=== PATIENT | male | born 1980 | race Caucasian/White ===

== ENCOUNTER 2016-11-01 06:54 | Emergency (ER) | payer MEDICAID ==
[2016-11-01 08:08] VITALS: BP 123/78
--- NOTE | 2016-11-03 00:14 | ER ---
DATE SEEN: 11/01/2016 The patient was seen at 0735 hours. /[id number] ENRIQUE/KEMAR
--- NOTE | 2016-11-03 01:14 | ER ---
DATE SEEN: 11/01/2016 HISTORY OF PRESENT ILLNESS: This 35-year-old single smoker who has a significant history of approximately "every four years suicidal attempts - approximately 8 to 9 times since he has been 2 years of age" presents with one- week duration of increasing ear pain. He is allergic to Amoxil and penicillin, which cause anaphylactic shock, and also very allergic to erythromycin. There is a family history of all his grandparents and parents, siblings, having serious allergic reactions to penicillin. A year ago, he tried to hang himself. He has had previous surgery, right rotator cuff repair, and appendectomy. He has done well after the rotator cuff repair. 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 He lives in [place], [place]. His weight is 295 pounds. He has a former addiction. Does not want any pain medicine, unless he needs them. If he is prescribed pain medicine, he will take only 4 tablets. He has had PTSD, significant mood swings, ADHD, significant anxiety. History of alcohol use. REVIEW OF SYSTEMS: Decreased hearing. No sore throat. No sinus congestion. His seasonal allergies are quite extensive, especially this time of the year when the grain does ooze. CARDIORESPIRATORY: Negative. Denies shortness of breath, chest pain. Regular rate and rhythm. Denies abdominal pain, change in bowels, diarrhea, constipation, blood in stool, black tarry stools. MUSCULOSKELETAL: Denies arthritis. PHYSICAL EXAMINATION: VITAL SIGNS: Blood pressure 139/88, heart rate 87, respirations 17, oxygen saturation 98%, and temperature is 36.8 degrees centigrade. GENERAL: Alert man, in mild distress. He has difficulty getting up. He preferred not standing up to be examined. He is tall, overweight and has pear-shaped body habitus. PERRLA intact. Bilateral beefy red TMs, which are swollen. No TM fluid level is demonstrated. Canals are normal. There is marked turbinate swelling. Bilateral pharynx without abnormality. Mild shiners. LUNGS: Clear to auscultation without rales, rhonchi, or wheezes. HEART: S1, S2. No murmur. ABDOMEN: Soft. No guarding. No abdominal discomfort. EXTREMITIES: Without abnormality. NEURO: Not performed. ASSESSMENT AND PLAN: 1. Bilateral otitis media, treated with clindamycin 300 mg q.i.d., 40 tablets. 2. Four tablets of Vicodin for severe pain, and discussed with him using medication for allergic rhinitis. This will probably open eustachian tubes. Trial prednisone. 3. Obesity. 4. Suicidal ideation. He has had suicidal attempts about 8 or 9 times. He has been 3 years without this. He states every 4 years on the clock, he has tried to commit suicide. Stable presently. 5. Status post right rotator cuff surgery, and appendectomy. 6. Depression, bipolar, anxiety, and sees a counselor on a regular basis. Plan Clindamycin 300 mg qid and prednisone, 4 tab vicodin. /[id number] ENRIQUE/KEMAR LEONARD
--- NOTE | 2016-11-03 02:47 | ER ---
DATE SEEN: 11/01/2016 TIME SEEN: The patient was seen at 0730 hours. HISTORY OF PRESENT ILLNESS: The patient has left ear pain 2 days duration. He notes he has had significant allergies. It gets worse with harvest season. 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 He is allergic to penicillin. He has had anaphylactic shock with penicillin as well as all of his relatives mother, father, grandmother, grandparents, grandfather all had " like allergic anaphylactic reaction to penicillin." He is also allergic to erythromycin base. He has multiple other issues. OTHER PAST MEDICAL HISTORY: Significant for right rotator cuff surgery. One year ago, he hung himself. Every 4 years, he states he has attempted suicide. His weight is 295 pounds. He currently works at home and caring for his friends' children. He has bipolar, sees a counselor on a weekly basis. He has had chemical dependency in the past. Does not want any pain killers, if anything would be 4 tablets. REVIEW OF SYSTEMS: HEENT: Negative except the ear pain. Denies sinusitis or sore throat, but he has extensive nasal congestion and has extensive nasal allergies secondary to the seasonal pollen of corn, soybean, wheat harvesting. LUNGS: Denies cardiorespiratory complaints. GI: Denies GI complaints. He is markedly overweight at 295 pounds with the BMI of 36.2 kilos/sq m. : Negative. MUSCULOSKELETAL: Negative except for mild arthritis in the upper and lower extremities because of his weight. PSYCHIATRIC: Bipolar disease with significant depression, intermittent, every 4 years suicidal activity. He is now into 3 years without suicidal ideation or activity. The patient said every day he thinks about suicide. PHYSICAL EXAMINATION: VITAL SIGNS: Blood pressure 139/89, heart rate 87, respirations 17, oxygen saturation 97%, temperature 36.8 degrees centigrade. HEENT: PERRLA intact. The patient is mildly overweight. Smells of cigarettes. Bilateral red TMs with bulging. No canal pain. With traction. Mild cervical adenopathy. Pharynx without erythema. NECK: Supple. LUNGS: Clear to auscultation. HEART: S1, S2. No murmur. ABDOMEN: Soft. No guarding. No abdominal discomfort. No masses or megaly. EXTREMITIES: Without edema. NEURO: Not performed. ASSESSMENT: 1. Bilateral otitis media. 2. History of anaphylaxis to penicillin of the patient and entire family members. 3. Premorbid obesity. 4. Cigarette use. 5. Bipolar with weekly counseling. 6. Chemical dependency history in the past. PLAN: Treat with clindamycin 300 mg q.i.d., 40 tablets. Prednisone 10 mg b.i.d. for 3 days then 10 mg daily for 6 days. Four tablets of Vicodin 1 q.4 hours p.r.n. breakthrough pain if not resolved with 1000 mg of Tylenol and 600 mg of ibuprofen. He is very afraid to use any form of pain medicines. He would not like to resume that chemical dependency activity. /[id number] ENRIQUE/KEMAR
== END 2016-11-01 08:00 | disposition home or self-care (01) ==
LOC: FB.ED 06:54
DX: H66.93 Otitis media, unspecified, bilateral (principal); F31.9 Bipolar disorder, unspecified; F41.9 Anxiety disorder, unspecified; F17.210 Nicotine dependence, cigarettes, uncomplicated; E66.01 Morbid (severe) obesity due to excess calories; Z88.0 Allergy status to penicillin; Z88.1 Allergy status to other antibiotic agents; Z98.890 Other specified postprocedural states; Z68.36 Body mass index [BMI] 36.0-36.9, adult
CPT/HCPCS: 99283

== ENCOUNTER 2017-06-01 20:07 | Emergency (ER) | payer MEDICAID ==
--- NOTE | 2017-06-01 20:14 | EDM.PDOC ---
ED HPI GENERAL MEDICAL PROBLEM - General Stated Complaint: FALL Time Seen by Provider: 06/01/17 20:07 Source of Information: Reports: Patient, Family History Limitations: Reports: No Limitations - History of Present Illness INITIAL COMMENTS - FREE TEXT/NARRATIVE: 36 y.o.w.m -former Drug addict- came to the ed shortly after he fell at home and injured his left ankle and foot. Pt noticed a small abrasion an his left big toe as well. Pt denies any other acute injuries. No LOC, No N/V/D or dizziness. Exact mech of injury is not known. BP 149/89 Pulse 89 RR 18 Pulse ox 98% on RA Temp 36.8 Onset Date: 06/01/17 Onset Time: 14:00 Duration: Hour(s):, Getting Worse, Intermittent Location: Reports: Lower Extremity, Left Quality: Reports: Ache, Burning, Dull Severity: Moderate Improves with: Reports: Rest Worsens with: Reports: Movement Context: Reports: Trauma (fall) Associated Symptoms: Reports: Other (abrsasion left big toe) Treatments BACTERIOLOGY RESEARCH ASSISTANT: Reports: NSAIDS L ankle & foot Pain Score (Numeric/FACES): 5 - Related Data Allergies Allergy/AdvReac Type Severity Reaction Status Date / Time Penicillins Allergy Severe Anaphylactic Verified 06/01/17 20:15 Shock adhesive Allergy Hives Verified 06/01/17 20:15 erythromycin base Allergy Hives Verified 06/01/17 20:15 [Erythromycin Base] varenicline tartrate Allergy Other Verified 06/01/17 20:15 [From Chantix] Home Meds: Home Meds OXcarbazepine [Trileptal] 1,200 mg PO DAILY 06/01/17 [History] OXcarbazepine [Trileptal] 600 mg PO BEDTIME 06/01/17 [History] cloNIDine [Catapres] 0.2 mg PO BID 06/01/17 [History] Past Medical History - Past Health History Medical/Surgical History: Denies Medical/Surgical History HEENT History: Reports: Impaired Vision Respiratory History: Reports: Asthma Psychiatric History: Reports: Anxiety, Depression, Panic Attack - Past Surgical History GI Surgical History: Reports: Appendectomy Other Musculoskeletal Surgeries/Procedures:: shoulder surgery Social & Family History - Family History Family Medical History: Unobtainable - Tobacco Use Smoking Status *Q: Current Every Day Smoker Years of Tobacco use: 25 Packs/Tins Daily: 1 - Caffeine Use Caffeine Use: Reports: Coffee, Soda, Tea - Alcohol Use Days Per Week of Alcohol Use: 0 Number of Drinks Per Day: 1 Total Drinks Per Week: 0 - Recreational Drug Use Recreational Drug Use: No Drug Use in Last 12 Months: No Recreational Drug Type: Reports: Amphetamines (Speed), Cocaine, Heroin, LSD ( Acid), Marijuana/Hashish, Methamphetamine Review of Systems - Review of Systems Review Of Systems: See Below Constitutional: Reports: No Symptoms Eyes: Reports: No Symptoms Ears: Reports: No Symptoms Nose: Reports: No Symptoms Mouth/Throat: Reports: No Symptoms Respiratory: Reports: No Symptoms Cardiovascular: Reports: No Symptoms GI/Abdominal: Reports: No Symptoms Genitourinary: Reports: No Symptoms Musculoskeletal: Reports: Foot Pain, Other (left ankle pain) Skin: Reports: Wound (left big toe, med aspect) Neurological: Reports: No Symptoms Psychiatric: Reports: No Symptoms ED EXAM, GENERAL - Physical Exam Exam: See Below Exam Limited By: No Limitations General Appearance: Alert, WD/WN, Mild Distress Eye Exam: Bilateral Eye: Normal Inspection Ears: Normal External Exam Ear Exam: Bilateral Ear: Auricle Normal Nose: Normal Inspection, Normal Mucosa, No Blood Throat/Mouth: Normal Inspection, Normal Lips Head: Atraumatic, Normocephalic Neck: Normal Inspection, Supple, Non-Tender, Full Range of Motion Respiratory/Chest: No Respiratory Distress, Lungs Clear, Normal Breath Sounds Cardiovascular: Normal Peripheral Pulses, Regular Rate, Rhythm, No Edema, No Gallop, JVD Peripheral Pulses: 1+: Femoral (L) GI/Abdominal: Normal Bowel Sounds, Soft, Non-Tender (Male) Exam: Deferred Rectal (Males) Exam: Deferred Back Exam: Normal Inspection, Full Range of Motion Extremities: Normal Inspection, Limited Range of Motion (left ankle) Neurological: Alert, Oriented, CN II-XII Intact, Normal Cognition, Abnormal Gait (left ankle pain) Psychiatric: Normal Affect, Normal Mood Skin Exam: Warm, Dry, Intact, Normal Color, Wound/Incision (abrasion left big toe) Lymphatic: No Adenopathy Course - Vital Signs Text/Narrative:: 36 y.o.w.m -former Drug addict- came to the ed shortly after he fell at home and injured his left ankle and foot. Pt noticed a small abrasion an his left big toe as well. Pt denies any other acute injuries. No LOC, No N/V/D or dizziness. Exact mech of injury is not known. BP 149/89 Pulse 89 RR 18 Pulse ox 98% on RA Temp 36.8 PE: Morbid obese 36 years old w m, currently unemployed, lives with a friend Imaging: Left selma, left food: No acute fracture TD UTD. Last TD 7 years ago. Impression: Left ankle sprain, abrasion left big toe, med aspect Tx: James wrap, crutches. Neosporins to wound (pt will use own Neosporine at home) Reexam: Improved, pt can ambulate with crutches well Plan: D/C with instructions Last Recorded V/S: Last Vital Signs Temp 36.6 C 06/01/17 20:10 Pulse 81 06/01/17 20:10 Resp 18 06/01/17 20:10 BP 149/89 H 06/01/17 20:10 Pulse Ox 99 06/01/17 20:10 - Orders/Labs/Meds Orders: Active Orders 24 hr Category Date Time Status Ankle Min 3V Lt [CR] Stat Exams 06/01/17 20:12 Taken Foot Comp Min 3V Lt [CR] Stat Exams 06/01/17 20:12 Taken Departure - Departure Time of Disposition: 21:42 Disposition: Home, Self-Care 01 Condition: Good Clinical Impression: Abrasion Left ankle sprain Qualifiers: Encounter type: initial encounter - Discharge Information Instructions: Ankle Sprain, [id number] Referrals: PCP,None [Primary Care Provider] - Forms: ED Department Discharge Additional Instructions: ice, rest and elevation, weight bearing as tolerated, Neosporine ointment to left toe lesion, please follow up next week for recheck, come back if your symptoms get worse acutely. Use crutches until able to walk with full weight bearing as tolerated. James wrap to L ankle. - My Orders Last 24 Hours: My Active Orders 06/01/17 20:12 Ankle Min 3V Lt [CR] Stat Foot Comp Min 3V Lt [CR] Stat - Assessment/Plan Last 24 Hours: My Active Orders 06/01/17 20:12 Ankle Min 3V Lt [CR] Stat Foot Comp Min 3V Lt [CR] Stat
[2017-06-01 23:00] VITALS: BP 135/73
== END 2017-06-01 22:17 | disposition home or self-care (01) ==
LOC: FB.ED 20:07
DX: S93.402A Sprain of unspecified ligament of left ankle, initial encounter (principal); S90.412A Abrasion, left great toe, initial encounter; F17.210 Nicotine dependence, cigarettes, uncomplicated; Z88.0 Allergy status to penicillin; Z88.1 Allergy status to other antibiotic agents; Z88.8 Allergy status to other drugs, medicaments and biological substances; Z79.899 Other long term (current) drug therapy; W19.XXXA Unspecified fall, initial encounter; Y92.009 Unspecified place in unspecified non-institutional (private) residence as the place of occurrence of the external cause
CPT/HCPCS: 73610-LT; 73630-LT; 99283

== ENCOUNTER 2017-08-20 17:22 | Emergency (ER) | payer MEDICAID ==
--- NOTE | 2017-08-20 17:40 | EDM.PDOC ---
ED HPI GENERAL MEDICAL PROBLEM - General Chief Complaint: Behavioral/Psych Stated Complaint: PASSING OUT,HURT LEFT WRIST Time Seen by Provider: 08/20/17 17:25 Source of Information: Reports: Patient, Family - History of Present Illness INITIAL COMMENTS - FREE TEXT/NARRATIVE: c/o L wrist pain scratched on dorsum L hand this AM by his cat, has pain in his wrist now, does not remember injury went to walk-in clinic, he "passed out" on exam table which he has done many times in past, has seen neuro, sig other notes that there is no change from previous and that he does this when he is upset has started a new job, 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 for his new job enrollment left wrist Pain Score (Numeric/FACES): 7 - Related Data Allergies Allergy/AdvReac Type Severity Reaction Status Date / Time Penicillins Allergy Severe Anaphylactic Verified 08/20/17 17:54 Shock adhesive Allergy Hives Verified 08/20/17 17:54 erythromycin base Allergy Hives Verified 08/20/17 17:54 [Erythromycin Base] varenicline tartrate Allergy Other Verified 08/20/17 17:54 [From Chantix] Home Meds: Home Meds Sulfamethoxazole/Trimethoprim [Bactrim Ds Tablet] 1 each PO BID #14 tablet 08/20 [Rx] Past Medical History - Past Health History Medical/Surgical History: Denies Medical/Surgical History HEENT History: Reports: Impaired Vision Cardiovascular History: Reports: Syncope Other Cardiovascular History: states has problems with dizziness & passes out freq. for approx 1 min. Respiratory History: Reports: Asthma Other Respiratory History: athletic asthma Gastrointestinal History: Reports: GERD Musculoskeletal History: Reports: Arthritis, Back Pain, Chronic, Fracture, Neck Pain, Chronic Neurological History: Reports: Concussion, Migraines, Vertigo, Other (See Below) Other Neuro History: heat stroke, has freq dizziness, Psychiatric History: Reports: Anxiety, Depression, Panic Attack Other Psychiatric History: borderline personality, social anxiety, anger management, psych hospitalizations x 3, CD tx currently, hx ETOH & drug abuse. Endocrine/Metabolic History: Reports: Obesity/BMI 30+ - Infectious Disease History Infectious Disease History: Reports: Chicken Pox - Past Surgical History GI Surgical History: Reports: Appendectomy Other Musculoskeletal Surgeries/Procedures:: shoulder surgery Social & Family History - Family History Family Medical History: Unobtainable - Caffeine Use Caffeine Use: Reports: Coffee, Soda, Tea Review of Systems - Review of Systems Review Of Systems: See Below Constitutional: Reports: No Symptoms Eyes: Reports: No Symptoms Ears: Reports: No Symptoms Nose: Reports: No Symptoms Mouth/Throat: Reports: No Symptoms Respiratory: Reports: No Symptoms Cardiovascular: Reports: No Symptoms GI/Abdominal: Reports: No Symptoms Genitourinary: Reports: No Symptoms Musculoskeletal: Reports: Other (left wrist pain) Skin: Reports: No Symptoms Neurological: Reports: No Symptoms Psychiatric: Reports: No Symptoms ED EXAM, GENERAL - Physical Exam Exam: See Below Exam Limited By: No Limitations General Appearance: Alert, WD/WN Neck: Normal Inspection, Supple, Non-Tender, Full Range of Motion Respiratory/Chest: No Respiratory Distress Cardiovascular: Regular Rate, Rhythm GI/Abdominal: Soft, Non-Tender Back Exam: Normal Inspection, Full Range of Motion, NT Extremities: Other (L wrist and hand with slight swell, mild tender across dorsum carpal bones, not localizing, no erythmea, two scratch elise of 4 & 5 cm parallel on dorsum of hand, FROM all fingers, no LNs at L epitrochlear or L axillae, good ROM of L shoulder without pain and no PT present) Lymphatic: No Adenopathy Course - Vital Signs Last Recorded V/S: Last Vital Signs Temp 36.6 C 08/20/17 17:30 Pulse 85 08/20/17 17:30 Resp 16 08/20/17 17:30 BP 138/71 08/20/17 17:30 Pulse Ox 96 08/20/17 17:30 - Orders/Labs/Meds Orders: Active Orders 24 hr Category Date Time Status Wrist Comp Min 3V Lt [CR] Stat Exams 08/20/17 17:33 Taken Dexamethasone Med 08/20/17 17:55 Once 10 mg PO ONETIME ONE Sulfamethoxazole/Trimethoprim [Septra DS] Med 08/20/17 17:55 Once 1 tab PO ONETIME ONE - Re-Assessments/Exams Free Text/Narrative Re-Assessment/Exam: 08/20/17 17:56 XR L wrist neg, he agrees to steroid and antbx does appear to have cat scratch disease, cannot exclude other inflammatory arthritides worked 4h at [employer] today until dismissed at 2 PM as "there was no more work", not working there again this week has apt in 2d with Dr Kate, sig other agrees to make sure the has his hand and wrist evaluated again sig other says pt "got bad news" at Social Security benefits and that pt gets "upset" and "passes out" when he gets bad news, current behavior is baseline for him Departure - Departure Time of Disposition: 17:58 Disposition: Home, Self-Care 01 Condition: Good Clinical Impression: Cat scratch of left hand, Cat-scratch disease - Discharge Information Prescriptions: Sulfamethoxazole/Trimethoprim [Bactrim Ds Tablet] 1 each PO BID #14 tablet Instructions: Cat-Scratch Disease Referrals: Sai Kate MD [Primary Care Provider] - Forms: ED Department Discharge Additional Instructions: For infection, take Bactrim DS 1 ta 2 times a day for 7 days. Use ice for 10 minutes 4 times a day for 2 days. For pain and inflammation and swelling, take ibuprofen 200 mg 3 tabs and acetaminophen 325 mg 2 tabs 4 times a day until you see Dr Kate, longer if needed. You were given dexamethasone 10 mg here, a steroid. See Dr Kate in 2 days as scheduled. Return to ED if you are feeling worse. - My Orders Last 24 Hours: My Active Orders 08/20/17 17:33 Wrist Comp Min 3V Lt [CR] Stat 08/20/17 17:55 Dexamethasone 10 mg PO ONETIME ONE Sulfamethoxazole/Trimethoprim [Septra DS] 1 tab PO ONETIME ONE - Assessment/Plan Last 24 Hours: My Active Orders 08/20/17 17:33 Wrist Comp Min 3V Lt [CR] Stat 08/20/17 17:55 Dexamethasone 10 mg PO ONETIME ONE Sulfamethoxazole/Trimethoprim [Septra DS] 1 tab PO ONETIME ONE
[2017-08-20 17:53] VITALS: BP 138/71
[2017-08-20] MEDS: Dexamethasone 4 MG Tab PO ONE (18:08)
[2017-08-20] MEDS: Sulfamethoxazole/Trimethoprim 800-160 MG Tab PO ONE (18:08)
--- NOTE | 2017-08-21 11:45 | CR ---
INDICATION: Left wrist pain, injury unknown. LEFT WRIST: Three views of the left wrist were obtained and revealed no evidence of a fracture or dislocation. There was suggestion of volar fat pad deviation, suggesting a wrist joint effusion. This should be correlated clinically. No other bone or joint abnormality was seen. MTDD
== END 2017-08-20 18:05 | disposition home or self-care (01) ==
LOC: FB.ED 17:22
DX: S60.512A Abrasion of left hand, initial encounter (principal); Z88.0 Allergy status to penicillin; Z88.1 Allergy status to other antibiotic agents; Z88.8 Allergy status to other drugs, medicaments and biological substances; Z91.048 Other nonmedicinal substance allergy status; W55.03XA Scratched by cat, initial encounter
CPT/HCPCS: 73110-LT; 99283; A9270-GY; J8540

== ENCOUNTER 2020-07-30 19:05 | Emergency (ER) | payer MEDICAID ==
--- NOTE | 2020-07-30 19:34 | EDM.PDOC ---
ED HPI GENERAL MEDICAL PROBLEM - General Chief Complaint: Lower Extremity Injury/Pain Stated Complaint: left ankle Time Seen by Provider: 07/30/20 19:28 Source of Information: Reports: Patient History Limitations: Reports: No Limitations - History of Present Illness INITIAL COMMENTS - FREE TEXT/NARRATIVE: Patient rolled his left ankle while he was walking around the corner of his bed. He heard a pop and is now having non-localized left ankle pain. Onset: Today Duration: Hour(s): (1) Location: Reports: Lower Extremity, Left Quality: Reports: Ache Severity: Moderate Treatments ACID MIXER: Denies: Acetaminophen, NSAIDS L ankle Pain Score (Numeric/FACES): 8 - Related Data Allergies Allergy/AdvReac Type Severity Reaction Status Date / Time Penicillins Allergy Severe Anaphylactic Verified 07/30/20 19:19 Shock adhesive Allergy Hives Verified 07/30/20 19:19 erythromycin base Allergy Hives Verified 07/30/20 19:19 [Erythromycin Base] varenicline tartrate Allergy Other Verified 07/30/20 19:19 [From Chantix] Home Meds: Home Meds OLANZapine [Olanzapine] 20 mg PO BEDTIME 07/30/20 [History] Past Medical History HEENT History: Reports: Impaired Vision Cardiovascular History: Reports: Syncope Other Cardiovascular History: states has problems with dizziness & passes out freq. for approx 1 min. Respiratory History: Reports: Asthma Other Respiratory History: athletic asthma Gastrointestinal History: Reports: GERD Musculoskeletal History: Reports: Arthritis, Back Pain, Chronic, Fracture, Neck Pain, Chronic Neurological History: Reports: Concussion, Migraines, Vertigo, Other (See Below) Other Neuro History: heat stroke, has freq dizziness, Psychiatric History: Reports: Anxiety, Depression, Panic Attack Other Psychiatric History: borderline personality, social anxiety, anger management, psych hospitalizations x 3, CD tx currently, hx ETOH & drug abuse. Endocrine/Metabolic History: Reports: Obesity/BMI 30+ - Infectious Disease History Infectious Disease History: Reports: Chicken Pox - Past Surgical History GI Surgical History: Reports: Appendectomy Other Musculoskeletal Surgeries/Procedures:: shoulder surgery Social & Family History - Family History Family Medical History: Unobtainable - Tobacco Use Tobacco Use Status *Q: Current Every Day Tobacco User Tobacco Use Within Last Twelve Months: Cigarettes - Caffeine Use Caffeine Use: Reports: Coffee, Soda, Tea Review of Systems - Review of Systems Review Of Systems: Comprehensive ROS is negative, except as noted in HPI. ED EXAM, GENERAL - Physical Exam Exam: See Below Exam Limited By: No Limitations General Appearance: Alert, WD/WN, No Apparent Distress Ears: Normal External Exam Throat/Mouth: No Airway Compromise Head: Atraumatic, Normocephalic Neck: Full Range of Motion Respiratory/Chest: No Respiratory Distress Peripheral Pulses: 3+: Dorsalis Pedis (L) Extremities: No Pedal Edema, Normal Capillary Refill, Other (Tenderness to left ankle lateral malleolus, no swelling or deformity. Ankle is stable) Neurological: Alert, Normal Cognition, No Motor/Sensory Deficits Psychiatric: Normal Affect, Normal Mood Skin Exam: Warm, Dry, Intact Course - Vital Signs Last Recorded V/S: Last Vital Signs Temp 37.1 C 07/30/20 19:10 Pulse 115 H 07/30/20 19:10 Resp 20 07/30/20 19:10 BP 151/93 H 07/30/20 19:10 Pulse Ox 98 07/30/20 19:10 - Orders/Labs/Meds Orders: Active Orders 24 hr Category Date Time Status Splinting [RC] ASDIRECTED Care 07/30/20 19:27 Ordered Ankle Min 3V Lt [CR] Stat Exams 07/30/20 19:08 Taken - Radiology Interpretation Free Text/Narrative:: Left Ankle XR: No fracture or dislocation. (ED provider interpretation) - Re-Assessments/Exams Free Text/Narrative Re-Assessment/Exam: 07/30/20 19:32 Placed in an aircast and fitted with crutches. Departure - Departure Time of Disposition: 19:32 Disposition: Home, Self-Care 01 Condition: Good Clinical Impression: Left ankle sprain Qualifiers: Encounter type: initial encounter Involved ligament of ankle: unspecified ligament Qualified Code(s): S93.402A - Sprain of unspecified ligament of left ankle, initial encounter - Discharge Information *PRESCRIPTION DRUG MONITORING PROGRAM REVIEWED*: No *COPY OF PRESCRIPTION DRUG MONITORING REPORT IN PATIENT RENALDO: Not Applicable Instructions: Ankle Sprain, [id number], Crutch Use, Adult, [id number] Referrals: Sai Kate MD [Primary Care Provider] - Additional Instructions: Take Ibuprofen as needed. Elevate the leg. Ice the area affected. Weight bear as tolerated. Follow up with your Primary Physician in 4-5 days if symptoms don't improve. Sepsis Event Note (ED) - Evaluation Sepsis Screening Result: No Definite Risk - Focused Exam Vital Signs: Vital Signs Temp Pulse Resp BP Pulse Ox 07/30/20 19:10 37.1 C 115 H 20 151/93 H 98 - My Orders Last 24 Hours: My Active Orders 07/30/20 19:08 Ankle Min 3V Lt [CR] Stat 07/30/20 19:27 Splinting [RC] ASDIRECTED - Assessment/Plan Last 24 Hours: My Active Orders 07/30/20 19:08 Ankle Min 3V Lt [CR] Stat 07/30/20 19:27 Splinting [RC] ASDIRECTED
[2020-07-30] MEDS: Ibuprofen 800 MG Tab PO ONE (19:45)
[2020-07-30 21:50] VITALS: BP 154/78; PULSE 107
--- NOTE | 2020-08-01 10:45 | CR ---
INDICATION: Injury. LEFT ANKLE: Three views of the left ankle were obtained 07/30/20 - no comparison. Soft tissue swelling is noted overlying the lateral malleolus. A small posterior calcaneal spur is noted. An acute fracture or dislocation was not identified with the ankle mortise appearing to be intact. Talar dome was intact. IMPRESSION: No acute fracture or dislocation with lateral soft tissue swelling noted. If symptoms persist - if occult fracture site is suspected clinically, reexamination in 10 to 14 days may be helpful. [id number]
== END 2020-07-30 20:07 | disposition home or self-care (01) ==
LOC: FB.ED 19:05
DX: S93.402A Sprain of unspecified ligament of left ankle, initial encounter (principal); E66.9 Obesity, unspecified; Z88.0 Allergy status to penicillin; Z91.048 Other nonmedicinal substance allergy status; Z88.8 Allergy status to other drugs, medicaments and biological substances; Z88.1 Allergy status to other antibiotic agents; Z72.0 Tobacco use; Z68.34 Body mass index [BMI] 34.0-34.9, adult; X50.1XXA Overexertion from prolonged static or awkward postures, initial encounter
CPT/HCPCS: 73610; 99283; A9270

== ENCOUNTER 2021-10-05 20:09 | Emergency (ER) | payer MEDICAID ==
[2021-10-05] MEDS ORDERED: Ibuprofen 800 MG Tab PO ONE (21:46)
[2021-10-05 23:22] VITALS: BP 138/75; PULSE 90
== END 2021-10-05 22:06 | disposition home or self-care (01) ==
LOC: FB.ED 20:09
DX: M25.512 Pain in left shoulder (principal); M25.532 Pain in left wrist; E66.9 Obesity, unspecified; Z68.36 Body mass index [BMI] 36.0-36.9, adult; Z88.0 Allergy status to penicillin; Z91.048 Other nonmedicinal substance allergy status; Z88.1 Allergy status to other antibiotic agents; Z88.8 Allergy status to other drugs, medicaments and biological substances; Z79.899 Other long term (current) drug therapy; Z90.49 Acquired absence of other specified parts of digestive tract; W18.39XA Other fall on same level, initial encounter
CPT/HCPCS: 73030-LT; 73110-LT; 99283; A9270-GY

== ENCOUNTER 2022-04-04 21:00 | Emergency (ER) | payer OTHER, MEDICAID ==
[2022-04-04] MEDS ORDERED: Ketorolac 30 MG/ML SDV IM ONE (21:36)
[2022-04-04] MEDS ORDERED: Acetaminophen 500 MG Tab PO ONE (21:36)
[2022-04-04] MEDS ORDERED: Cyclobenzaprine 10 MG Tab PO ONE (21:36)
[2022-04-04 21:46] VITALS: BP 150/82; PULSE 91
== END 2022-04-04 23:20 | disposition home or self-care (01) ==
LOC: FB.ED 21:00
DX: S20.229A Contusion of unspecified back wall of thorax, initial encounter (principal); J45.909 Unspecified asthma, uncomplicated; E66.9 Obesity, unspecified; Z68.38 Body mass index [BMI] 38.0-38.9, adult; Z88.0 Allergy status to penicillin; Z88.1 Allergy status to other antibiotic agents; Z91.048 Other nonmedicinal substance allergy status; Z88.8 Allergy status to other drugs, medicaments and biological substances; Z79.899 Other long term (current) drug therapy; W00.0XXA Fall on same level due to ice and snow, initial encounter; Y92.89 Other specified places as the place of occurrence of the external cause; Y99.0 Civilian activity done for income or pay
CPT/HCPCS: 72050; 96372; 99282; 99283; A9270-GY; J1885

== ENCOUNTER 2024-07-10 15:56 | Emergency (ER) | payer OTHER ==
[2024-07-10 18:40] VITALS: BP 124/86; PULSE 89
== END 2024-07-10 18:15 | disposition home or self-care (01) ==
LOC: FB.ED 15:56
DX: S63.501A Unspecified sprain of right wrist, initial encounter (principal); S40.012A Contusion of left shoulder, initial encounter; Z88.0 Allergy status to penicillin; Z91.048 Other nonmedicinal substance allergy status; Z88.1 Allergy status to other antibiotic agents; Z88.8 Allergy status to other drugs, medicaments and biological substances; X50.1XXA Overexertion from prolonged static or awkward postures, initial encounter; Y93.89 Activity, other specified; Y99.0 Civilian activity done for income or pay
CPT/HCPCS: 73030-LT; 73110-RT; 99283